=== PATIENT | male | born 1995 | race Caucasian/White ===

== ENCOUNTER 2020-02-09 09:10 | Emergency (ER) | payer SELFPAY ==
--- NOTE | 2020-02-09 11:34 | EDM.PDOC ---
ED HPI GENERAL MEDICAL PROBLEM - General Chief Complaint: General Stated Complaint: sore throat,congestion Time Seen by Provider: 02/09/20 11:15 Source of Information: Reports: Patient History Limitations: Reports: No Limitations - History of Present Illness INITIAL COMMENTS - FREE TEXT/NARRATIVE: Patient is a 24 y/o male who presents with sore throat and congestion x 1 day. He denies fever, SOB, AGUAYO, dizziness, chest pain, N/V/D, or contact with any known COVID patients. Throat Pain Score (Numeric/FACES): 4 - Related Data Allergies Allergy/AdvReac Type Severity Reaction Status Date / Time No Known Allergies Allergy Verified 02/09/20 10:35 Home Meds: Home Meds NK [No Known Home Meds] 02/09/20 [History] Past Medical History - Past Health History Medical/Surgical History: Denies Medical/Surgical History Social & Family History - Tobacco Use Smoking Status *Q: Current Some Day Smoker Years of Tobacco use: 10 Packs/Tins Daily: 0 - Caffeine Use Caffeine Use: Reports: Soda - Recreational Drug Use Recreational Drug Use: No ED ROS GENERAL - Review of Systems Review Of Systems: Comprehensive ROS is negative, except as noted in HPI. ED EXAM, GENERAL - Physical Exam Exam: See Below Free Text/Narrative:: Bilateral tonsillar erythema, with white exudates. No edema. Airway patent. Bilateral TMs intact and normal appearing. CTA bilateral lung sanchez. Exam Limited By: No Limitations General Appearance: Alert, No Apparent Distress Respiratory/Chest: No Respiratory Distress, Lungs Clear, Normal Breath Sounds, No Accessory Muscle Use, Chest Non-Tender Cardiovascular: Normal Peripheral Pulses, Regular Rate, Rhythm, No Edema, No Murmur Skin Exam: Warm, Dry Course - Vital Signs Last Recorded V/S: Last Vital Signs Temp 36.8 C 02/09/20 10:29 Pulse 64 02/09/20 10:29 Resp 18 02/09/20 10:29 BP Pulse Ox 97 02/09/20 10:29 - Orders/Labs/Meds Labs: Laboratory Tests 02/09/20 Range/Units 10:05 COVID-19 ([facility]) Negative Departure - Departure Time of Disposition: 11:30 Disposition: Home, Self-Care 01 Condition: Good Clinical Impression: Strep tonsillitis - Discharge Information *PRESCRIPTION DRUG MONITORING PROGRAM REVIEWED*: Not Applicable *COPY OF PRESCRIPTION DRUG MONITORING REPORT IN PATIENT VARINDER: Not Applicable Referrals: PCP,None [Primary Care Provider] - Forms: ED Department Discharge Care Plan Goals: stay hydrated. Rest . Take antibiotics as directed. Sepsis Event Note (ED) - Evaluation Sepsis Screening Result: No Definite Risk - Focused Exam Vital Signs: Vital Signs Temp Pulse Resp Pulse Ox 02/09/20 10:29 36.8 C 64 18 97 02/09/20 10:07 36.8 C - Assessment/Plan Plan: Z-yesi as directed with food. Guafenesin as directed and PRN for congestion. 2 days off from work. Lots of rest and fluids. Return to the ED for fever >102, unable to tolerate fluids difficulty breathing/swallowing, and/or persistent/wo rsening.
== END 2020-02-09 11:25 | disposition home or self-care (01) ==
LOC: LB.ED 09:10
DX: J03.00 Acute streptococcal tonsillitis, unspecified (principal); F17.210 Nicotine dependence, cigarettes, uncomplicated
CPT/HCPCS: 99283; U0002

== ENCOUNTER 2023-05-25 18:32 | Emergency (ER) | payer BC, MEDICAID ==
[2023-05-25] MEDS ORDERED: Amoxicillin/Clavulanate K 875-125 MG Tab ONE (19:00)
== END 2023-05-25 19:05 | disposition home or self-care (01) ==
LOC: LB.ED 18:32
DX: L72.9 Follicular cyst of the skin and subcutaneous tissue, unspecified (principal); R59.0 Localized enlarged lymph nodes; E66.9 Obesity, unspecified; Z68.32 Body mass index [BMI] 32.0-32.9, adult; Z87.891 Personal history of nicotine dependence
CPT/HCPCS: 99282; A9270; 99283

== ENCOUNTER 2023-07-09 11:11 | Emergency (ER) | payer MEDICAID | END 2023-07-09 13:30 | disposition home or self-care (01) | LOC: LB.ED 11:11 | DX: S12.491A Other nondisplaced fracture of fifth cervical vertebra, initial encounter for closed fracture (principal); S16.1XXA Strain of muscle, fascia and tendon at neck level, initial encounter; E66.9 Obesity, unspecified; Z68.32 Body mass index [BMI] 32.0-32.9, adult; W18.30XA Fall on same level, unspecified, initial encounter | CPT/HCPCS: 70450; 72125; 73200-RT; 99283 ==